=== PATIENT | male | born 1965 | race Caucasian/White ===

== ENCOUNTER 2018-10-25 17:40 | Emergency (ER) | payer BC ==
[2018-10-25] MEDS ORDERED: Sodium Chloride 0.9% 10 ML Syringe FLUSH PRN (18:56)
[2018-10-25] MEDS ORDERED: Enalaprilat 1.25 MG/ML SDV IVPUSH ONE ×2 (18:57→19:30)
--- NOTE | 2018-10-25 19:04 | EDM.PDOC ---
ED HPI GENERAL MEDICAL PROBLEM - General Chief Complaint: ENT Problem Stated Complaint: Nosebleed Time Seen by Provider: 10/25/18 17:53 Source of Information: Reports: Patient, RN, RN Notes Reviewed History Limitations: Reports: No Limitations - History of Present Illness INITIAL COMMENTS - FREE TEXT/NARRATIVE: Patient was sent to the ED at [facility] from [facility] for the treatment of a nosebleed. Patient states the bleed started around 3pm today. He did blow his nose just prior to the bleed. He currently has untreated hypertension. He is suppose to be taking Benicar HCT but has not taken since last January. No prior issues with nose bleed. History of a deviated septum. The clinic only tried Afrin which did not help. Patient states he had muscle cramps/ pain from taking the Benicar. States Lisinopril causes a cough. Onset: Today, Sudden Onset Date: 10/25/18 Onset Time: 15:00 - Related Data Allergies Allergy/AdvReac Type Severity Reaction Status Date / Time No Known Allergies Allergy Verified 10/25/18 17:54 Home Meds: Home Meds . [No Known Home Meds] 10/25/18 [History] Past Medical History Cardiovascular History: Reports: Hypertension Social & Family History - Tobacco Use Smoking Status *Q: Unknown Ever Smoked ED ROS ENT - Review of Systems Review Of Systems: See Below Constitutional: Denies: Fever, Chills HEENT: Reports: Nosebleed Respiratory: Denies: Shortness of Breath Cardiovascular: Denies: Chest Pain, Palpitations Skin: Reports: No Symptoms Neurological: Reports: No Symptoms ED EXAM, ENT - Physical Exam Exam: See Below Exam Limited By: No Limitations General Appearance: Alert, No Apparent Distress Nose: Nasal Tenderness, Active Bleeding Respiratory/Chest: No Respiratory Distress, Lungs Clear, Normal Breath Sounds Cardiovascular: Normal Peripheral Pulses, Regular Rate, Rhythm Neurological: Alert, Oriented Skin: Warm, Dry, Intact, Normal Color ED ENT PROCEDURES - Epistaxis Procedure Indication: Uncontrolled Recent anticoagulants/antiplatlets: No Uncontrolled HTN: Yes Recent septal/nasal surgery: No Site of bleeding: Right Nare Clearing of clots: Patient Blew Nose Topical Meds: Phenylephrine Ice pack to area: No Complications: No Complication Description: Bleeding controlled after blood pressure under control. Attempted packing but unable to insert given anatomy of nose Course - Vital Signs Last Recorded V/S: Last Vital Signs Temp 36.9 C 10/25/18 17:40 Pulse 97 10/25/18 17:40 Resp 20 10/25/18 17:40 BP 145/84 H 10/25/18 19:14 Pulse Ox 97 10/25/18 17:40 - Orders/Labs/Meds Orders: Active Orders 24 hr Category Date Time Status Oxymetazoline [Afrin Original 0.05% Nasal Rogers] Med 10/25/18 19:23 Once 1 ml GENESIS ONETIME ONE Sodium Chloride 0.9% [Saline Flush] Med 10/25/18 18:56 Ordered 10 ml FLUSH ASDIRECTED PRN Peripheral IV Insertion Adult [OM.PC] Routine Oth 10/25/18 18:56 Ordered Medication Orders Oxymetazoline HCl (Afrin Original 0.05% Nasal Rogers) 1 ml GENESIS ONETIME ONE Stop: 10/25/18 19:24 Sodium Chloride (Saline Flush) 10 ml FLUSH ASDIRECTED PRN PRN Reason: Keep Vein Open Meds: Medications Generic Name Dose Route Start Last Admin Trade Name Freq PRN Reason Stop Dose Admin Oxymetazoline HCl 1 ml 10/25/18 19:23 Afrin Original 0.05% Nasal Rogers GENESIS 10/25/18 19:24 ONETIME ONE Sodium Chloride 10 ml 10/25/18 18:56 Saline Flush FLUSH ASDIRECTED PRN Keep Vein Open Discontinued Medications Generic Name Dose Route Start Last Admin Trade Name Freq PRN Reason Stop Dose Admin Enalaprilat 1.25 mg 10/25/18 18:57 Vasotec Iv IVPUSH 10/25/18 18:58 ONETIME ONE Ondansetron HCl 4 mg 10/25/18 19:23 Zofran IVPUSH 10/25/18 19:24 ONETIME ONE Departure - Departure Time of Disposition: 19:36 Disposition: Home, Self-Care 01 Condition: Good Clinical Impression: Uncontrolled hypertension, Acute posterior epistaxis - Discharge Information *PRESCRIPTION DRUG MONITORING PROGRAM REVIEWED*: Not Applicable *COPY OF PRESCRIPTION DRUG MONITORING REPORT IN PATIENT ALEXEY: Not Applicable Instructions: Hypertension, Nosebleed, [id number] Referrals: Devyn Sarabia MD [Primary Care Provider] - Forms: ED Department Discharge Additional Instructions: 1. Stay well hydrated and rest 2. Will give one dose of blood pressure medication for tonight 3. Need to see Dr. Sarabia this week to restart medications for blood pressure 4. If nose starts to bleed again, return for treatment 5. Call with any questions or concerns - Problem List Review Problem List Initiated/Reviewed/Updated: Yes - My Orders Last 24 Hours: My Active Orders 10/25/18 18:56 Sodium Chloride 0.9% [Saline Flush] 10 ml FLUSH ASDIRECTED PRN Peripheral IV Insertion Adult [OM.PC] Routine 10/25/18 19:23 Oxymetazoline [Afrin Original 0.05% Nasal Rogers] 1 ml GENESIS ONETIME ONE - Assessment/Plan Last 24 Hours: My Active Orders 10/25/18 18:56 Sodium Chloride 0.9% [Saline Flush] 10 ml FLUSH ASDIRECTED PRN Peripheral IV Insertion Adult [OM.PC] Routine 10/25/18 19:23 Oxymetazoline [Afrin Original 0.05% Nasal Rogers] 1 ml GENESIS ONETIME ONE Assessment:: Epistaxis Plan: Discussed at length keeping blood pressure under good control. Patient needs to see PCP to restart medications. Nosebleed under good control at time of discharge. Patient was on Benicar HCT but states he stopped it due to muscle cramps/pain. Lisinopril causes a cough. Will start a one time dose of Lopressor so nose does not rebleed.
[2018-10-25] MEDS ORDERED: Oxymetazoline 0.05% Nasal Spray 15 ML Bottle NAS ONE (19:23)
[2018-10-25] MEDS ORDERED: Ondansetron 4 MG/2 ML SDV IVPUSH ONE (19:23)
[2018-10-25] MEDS ORDERED: Lisinopril 5 MG Tab PO ONE (19:26)
[2018-10-25] MEDS ORDERED: Metoprolol Succinate 25 MG Tab.ER PO ONE (19:33)
[2018-10-25 19:54] VITALS: BP 119/86
== END 2018-10-25 19:57 | disposition home or self-care (01) ==
LOC: VM.ED 17:40
DX: R04.0 Epistaxis (principal); I10 Essential (primary) hypertension
CPT/HCPCS: 30901; 30903; 30905; 96374; 99283-25; A9270-GY; J2405

== ENCOUNTER 2022-07-03 09:34 | Day surgery (SDC) | payer BC ==
[2022-07-03] MEDS: Lactated Ringers 1,000 ML IV SCH (10:15)
[2022-07-03] MEDS ORDERED: Propofol 200 MG/20 ML SDV ONE ×3 (10:17→11:32)
[2022-07-03] MEDS ORDERED: fentaNYL 100 MCG/2 ML SDV ONE (10:17)
[2022-07-03 13:10] VITALS: BP 128/64; PULSE 68
== END 2022-07-03 15:30 | disposition home or self-care (01) ==
LOC: VM.SDS 09:34
PROVIDERS: ATTEND Family Medicine
DX: Z12.11 Encounter for screening for malignant neoplasm of colon (principal); D12.6 Benign neoplasm of colon, unspecified; K57.30 Diverticulosis of large intestine without perforation or abscess without bleeding; I10 Essential (primary) hypertension; E78.5 Hyperlipidemia, unspecified; R73.9 Hyperglycemia, unspecified; E66.09 Other obesity due to excess calories; Z88.1 Allergy status to other antibiotic agents; Z86.010 Personal history of colon polyps; Z83.71 Family history of colonic polyps; Z98.890 Other specified postprocedural states; Z88.8 Allergy status to other drugs, medicaments and biological substances; Z79.899 Other long term (current) drug therapy; Z68.42 Body mass index [BMI] 45.0-49.9, adult
CPT/HCPCS: 00811; 45380; J2704; J3010; J7120

== ENCOUNTER 2023-10-02 12:20 | Emergency (ER) | payer BC ==
[2023-10-02 13:02] LABS: APPEARANCE,URINE CLEAR (CLEAR); BILIRUBIN,URINE SMALL (NEGATIVE); COLOR,URINE DARK YELLOW (YELLOW); GLUCOSE,URINE NEGATIVE (NEGATIVE); KETONES,URINE NEGATIVE (NEGATIVE); LEUKOCYTE ESTERASE,URINE NEGATIVE (NEGATIVE); NITRITE,URINE NEGATIVE (NEGATIVE); OCCULT BLOOD,URINE TRACE-INTACT (NEGATIVE); PH,URINE 5.5 (5.0-8.0); PROTEIN,URINE 100 mg/dL (NEGATIVE); UROBILINOGEN,URINE 0.2 EU/dL (0.2)
[2023-10-02 13:10] LABS: BASOPHILS PERCENT AUTO 0.2 % (0.2-1.2); EOSINOPHILS ABSOLUTE AUTO 0.1 x10^3/uL (0.0-0.5); EOSINOPHILS PERCENT AUTO 0.5 % (0.0-4.0); HEMATOCRIT 46.5 % (40.0-52.0); IMMATURE GRAN ABSOLUTE AUTO 0.04 x10^3/uL (0.00-0.07); LYMPHOCYTES ABSOLUTE AUTO 1.6 x10^3/uL (1.0-4.8); LYMPHOCYTES PERCENT AUTO 12.6 % (25.0-50.0); MEAN CORPUSCULAR HEMOGLOBIN 29.6 pg (26.0-32.0); MEAN CORPUSCULAR HGB CONC 34.4 g/dL (32.0-36.0); MONOCYTES ABSOLUTE AUTO 0.7 x10^3/uL (0.0-0.8); MONOCYTES PERCENT AUTO 5.3 % (2.0-11.0); NEUTROPHILS ABSOLUTE AUTO 10.3 x10^3/uL (1.8-7.7); NEUTROPHILS PERCENT AUTO 81.1 % (50.0-80.0); PLATELET COUNT,PLT 224 x10^3/uL (130-400); RED BLOOD CELL COUNT 5.41 x10^6/uL (4.5-6.0); WHITE BLOOD CELL COUNT,WBC 12.7 x10^3/uL (4.0-10.0)
[2023-10-02 13:11] LABS: SQUAMOUS EPITHELIAL CELLS,UR RARE /HPF (NOT SEEN); WBC,URINE 0-5 /HPF (NOT SEEN)
[2023-10-02 13:12] LABS: BACTERIA,URINE RARE /HPF (NOT SEEN); HYALINE CASTS,URINE FEW; MUCUS,URINE FEW /LPF (NOT SEEN)
[2023-10-02 13:32] LABS: A/G RATIO 0.86; ALANINE AMINOTRANSFERASE,ALT 57 U/L (16-63); ALBUMIN 3.7 g/dL (3.4-5.0); ALKALINE PHOSPHATASE 67 U/L (46-116); ASPARTATE AMNIOTRANSFERASE,AST 30 U/L (15-37); BILIRUBIN TOTAL 0.6 mg/dL (0.2-1.0); BLOOD UREA NITROGEN,BUN 14 mg/dL (7-18); C-REACTIVE PROTEIN 1.89 mg/dL (<=0.50); CALCIUM 9.4 mg/dL (8.5-10.1); CARBON DIOXIDE,CO2 25 mmol/L (21-32); CHLORIDE,CL 103 mmol/L (98-107); CREATININE 1.3 mg/dL (0.70-1.30); GLUCOSE RANDOM 136 mg/dL (70-99); LIPASE 81 U/L (19-71); POTASSIUM,K 3.6 mmol/L (3.5-5.1); SODIUM,NA 142 mmol/L (136-145)
[2023-10-02 13:33] LABS: ANION GAP 17.6 mmol/L (5-15); ESTIMATED GFR 63 mL/min (>=60)
[2023-10-02 13:47] VITALS: PULSE 99
[2023-10-02] MEDS: Iopamidol 612 MG/ML 100 ML Bottle IVPUSH ONE (14:30)
[2023-10-02] MEDS: Sodium Chloride 0.9% 1,000 ML IV ONE (15:20)
[2023-10-02] MEDS: Piperacillin/Tazobactam 4.5 GM in Sodium Chloride 0.9% 100 ML IV ONE (15:50)
[2023-10-02] MEDS: Ondansetron 4 MG/2 ML SDV IVPUSH ONE (16:00)
[2023-10-02 16:49] VITALS: BP 173/94
== END 2023-10-02 16:35 | disposition short-term general hospital (02) ==
LOC: VM.ED 12:20
DX: K37 Unspecified appendicitis (principal); E66.9 Obesity, unspecified; Z88.8 Allergy status to other drugs, medicaments and biological substances; Z79.899 Other long term (current) drug therapy; Z68.42 Body mass index [BMI] 45.0-49.9, adult
CPT/HCPCS: 36415; 74177; 80053; 81001; 83690; 85025; 86140; 96365; 96375; 99284; 99285-25; J2405; J2543; J3490; J7030; Q9967